=== PATIENT | male | born 1980 | race African-American/Black ===

== ENCOUNTER 2017-03-01 21:25 | Emergency (ER) | payer OTHER ==
[~2017-03-01] VITALS: Ht 182.9 cm; Wt 75.0 kg
[~2017-03-01 21:25] MED LIST: AUGM875T PO; BACT800T5 PO; CEPH500C3 PO
[2017-03-01 21:36] VITALS: BP 132/74; PULSE 70; RESP 16; TEMP 98.6; O2SAT 98
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
[2017-03-01] MEDS ORDERED: ACETAMINOPHEN/HYDROcodone 325 MG/5 MG TAB PO ONE (21:45)
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
[2017-03-01] MEDS ORDERED: NAPR500T PO (22:49)
[2017-03-01] MEDS ORDERED: CYCL1TAB29 PO (22:49)
[2017-03-01 22:56] VITALS: RESP 16
== END 2017-03-01 23:06 | disposition home or self-care (01) ==
LOC: NEPC 21:25
DX: M54.9 Dorsalgia, unspecified (principal); Z72.0 Tobacco use; Z79.899 Other long term (current) drug therapy; V43.52XA Car driver injured in collision with other type car in traffic accident, initial encounter
CPT/HCPCS: 72072; 72110; 99283

== ENCOUNTER 2018-02-24 07:20 | Emergency (ER) | payer SELFPAY ==
[~2018-02-24] VITALS: Ht 175.3 cm; Wt 68.0 kg
[~2018-02-24 07:20] MED LIST changes: +CYCL10TA PO; +NAPR500T2 PO
[2018-02-24 07:22] VITALS: BP 132/63; PULSE 65; RESP 18; TEMP 98.1; O2SAT 98
[2018-02-24] MEDS ORDERED: MUPI2OIN TOPICAL (07:40)
[2018-02-24] MEDS ORDERED: CEPH-460 PO (07:40)
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
== END 2018-02-24 07:53 | disposition home or self-care (01) ==
LOC: NEPD 07:20
DX: L73.8 Other specified follicular disorders (principal); F17.200 Nicotine dependence, unspecified, uncomplicated
CPT/HCPCS: 99283